=== PATIENT | female | born 1995 | race Caucasian/White ===

== ENCOUNTER 2022-05-21 13:42 | Emergency (ER) | payer BC ==
[~2022-05-21] VITALS: Ht 157.5 cm; Wt 85.5 kg
[2022-05-21 14:00] VITALS: TEMP 98.6
[2022-05-21 14:12] LABS: BASO % 0.4 % (0.0-2.0); EOS % 0.4 % (0.0-4.0); GRAN % 81.3 % (42.2-75.2); HEMOGLOBIN 15.3 g/dl (12.5-16.0); LYMPH # 1.1 K/mm3 (1.2-3.4); LYMPH % 11.6 % (20.0-51.0); MEAN CELL VOLUME 88 fl (80.0-100.0); MEAN CORPUSCULAR HEMOGLOBIN 30 pg (27-31); MEAN CORPUSCULAR HGB CONC 35 g/dl (33.0-37.0); MEAN PLATELET VOLUME 9.7 fl (7.4-10.4); MONO # 0.6 K/mm3 (0.1-0.6); MONO % 5.9 % (1.7-9.3); PLATELET COUNT 303 K/mm3 (130-400); RED BLOOD COUNT 5.03 M/mm3 (4.10-5.30); REDCELL DISTRIBUTION WIDTH-CV 13.3 % (11.5-14.5)
[2022-05-21 14:26] LABS: ALBUMIN 4.4 gm/dL (3.5-5.0); BILIRUBIN,TOTAL 1.5 mg/dL (0.2-1.2); CALCIUM 9.4 mg/dL (8.4-10.2); CREATININE, serum 0.72 mg/dL (0.57-1.11); POTASSIUM 4.1 mmol/L (3.5-4.5); TOTAL PROTEIN 7.7 gm/dL (6.2-8.1)
[2022-05-21 15:39] VITALS: BP 157/85; PULSE 88
== END 2022-05-21 15:40 | disposition home or self-care (01) ==
LOC: COL.ER 13:42
PROVIDERS: Nurse Practitioner
DX: R10.9 Unspecified abdominal pain (principal); R19.7 Diarrhea, unspecified
CPT/HCPCS: J7030

== ENCOUNTER 2023-10-23 12:58 | Emergency (ER) | payer BC ==
[2023-10-23 13:09] VITALS: TEMP 98.6
[2023-10-23 14:51] LABS: BASO % 0.6 % (0.0-2.0); EOS # 0.3 K/mm3 (0.0-0.7); EOS % 3.9 % (0.0-4.0); GRAN # 3.9 K/mm3 (1.4-6.5); GRAN % 59.3 % (42.2-75.2); HEMATOCRIT 41.1 % (37.0-47.0); HEMOGLOBIN 13.6 g/dl (12.5-16.0); LYMPH # 1.9 K/mm3 (1.2-3.4); LYMPH % 28.7 % (20.0-51.0); MEAN CELL VOLUME 92 fl (80.0-100.0); MEAN CORPUSCULAR HEMOGLOBIN 30 pg (27-31); MEAN CORPUSCULAR HGB CONC 33 g/dl (33.0-37.0); MEAN PLATELET VOLUME 10.2 fl (7.4-10.4); MONO # 0.5 K/mm3 (0.1-0.6); PLATELET COUNT 319 K/mm3 (130-400); RED BLOOD COUNT 4.49 M/mm3 (4.10-5.30); REDCELL DISTRIBUTION WIDTH-CV 13.1 % (11.5-14.5)
[2023-10-23 15:36] VITALS: BP 135/86; PULSE 58
== END 2023-10-23 15:40 | disposition home or self-care (01) ==
LOC: COL.ER 12:58
PROVIDERS: Personal Emergency Response Attendant
DX: K92.2 Gastrointestinal hemorrhage, unspecified (principal)